=== PATIENT | female | born 1970 | race African-American/Black ===

== ENCOUNTER 2021-08-23 20:51 | Emergency (ER) | payer BC ==
[2021-08-23] MEDS ORDERED: Acetaminophen 500 MG TAB ONE (21:15)
== END 2021-08-23 21:54 | disposition home or self-care (01) ==
LOC: NAV ERS 20:51
DX: S43.401A Unspecified sprain of right shoulder joint, initial encounter (principal); M77.8 Other enthesopathies, not elsewhere classified; I10 Essential (primary) hypertension; Z79.899 Other long term (current) drug therapy; X50.9XXA Other and unspecified overexertion or strenuous movements or postures, initial encounter